=== PATIENT | male | born 1955 | race Caucasian/White ===

== ENCOUNTER → 2017-06-26 07:32 | Day surgery (SDC) | payer OTHER ==
--- NOTE | 2017-06-18 07:19 | HP ---
CC: Dr. Wang * HISTORY AND PHYSICAL: DATE OF PLANNED ADMISSION AND SURGERY: 06/26/17 HISTORY OF PRESENT ILLNESS: Mr. Guerin is a 61-year-old white male who was recently diagnosed with a 2 cm bladder tumor who is admitted for cystoscopy and excisional biopsy. Mr. Guerin was worked up by Dr Nicolas because of microscopic hematuria. He had a renal ultrasound which was normal. Cystoscopy showed a 2 cm papillary lesion in the right trigone that had the gross appearance of a well-differentiated transitional cell carcinoma. The patient then had a CT urogram which was normal, showing no abnormal filling defects in the collecting systems or in the ureters and no solid renal masses. There was some bladder wall thickening of the anterior wall, but no masses were noted. PAST MEDICAL HISTORY AND SYSTEM REVIEW: He is a nonsmoker. He has hyperlipidemia maintained on rosuvastatin and on FiberCon. He is on 1 baby aspirin per day. He denies any cardiac or pulmonary diseases or symptoms. ALLERGIES: He has no allergies to medications. PHYSICAL EXAMINATION GENERAL: He is pleasant and healthy looking white male. VITAL SIGNS: Blood pressure 120/80, pulse of 80. LUNGS: Clear. HEART: Regular and rhythmic. No murmurs. ABDOMEN: Soft. No masses. No tenderness and No CVA tenderness. RECTAL: Exam by Dr Nicolas had shown a mildly enlarged, but nonsuspicious prostate. 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 Plan is for cystoscopy and excisional biopsy of the above tumor. I discussed the plans with the patient in detail including the need for followup and possible additional treatments depending upon the pathology report. All his questions were answered. [id number]/[facility] #: [id number] [facility]
[~2017-06-26 07:32] MED LIST: Acetaminophen TAB* 325 MG PO PRN; Buffered Lidocaine 0.9% SYRIN* 5 ML/SYR SYRINGE INTRADERM ONE; Buffered Lidocaine 0.9% SYRIN* 5 ML/SYR SYRINGE ONE; Lidocaine 2% PF * 5 ML VIAL ONE; Naloxone* 0.4 MG/ML 1 ML VIAL IV PRN; Propofol* 10 MG/ML 20 ML BTL IV PUSH ONE; cefTRIAXone(*) 2 GM ADDV.VIAL IVPB ONE; fentaNYL* 50 MCG/ML 2 ML VIAL (100 MCG VIAL) IV PRN; fentaNYL* 50 MCG/ML 2 ML VIAL (100 MCG VIAL) ONE; mitoMYcin PWD* 40 MG in Sterile Water for Inj* 40 ML IRRIGATION ONE; oxyCODONE/Acetamin 5/325 MG* TAB ONE
[2017-06-26 13:39] VITALS: BP 167/100
--- NOTE | 2017-06-26 23:22 | OP ---
CC: Dr. Wang * DATE OF OPERATION: 06/26/17 - [facility] DATE OF : 53 SURGEON: Lalito German MD ANESTHESIA: General. ANESTHESIOLOGIST: Noah Barnhart MD PRE-OP DIAGNOSIS: Bladder tumor, right lateral wall. POST-OP DIAGNOSIS: Bladder tumor, right lateral wall. OPERATIVE PROCEDURE: 1. Cystoscopy. 2. Excisional biopsy and fulguration of tumor of right bladder wall (1 cm). 3. Biopsies of right trigone. INDICATIONS: Mr. Guerin is a 61-year-old white male who was worked up for asymptomatic microscopic hematuria and was noted to have a 1-cm papillary lesion in the right lateral bladder wall just proximal to the level of the bladder neck. CT urogram was normal. The patient was admitted for the above procedure. PATHOLOGY AT CYSTOSCOPY: The penile and bulbar urethrae looked normal. The prostatic urethra measured about 2.5 to 3 cm in length and there was moderate degree of obstruction by trilobar hyperplasia of the prostate. The prostatic urethra was vascular. Examination of the bladder showed moderate degree of trabeculations. The ureteral orifices looked normal. There was a 1-cm papillary lesion arising from the right lateral bladder wall, just proximal to the bladder neck. The tumor had the gross appearance of well-differentiated transitional cell carcinoma. There was irregularity of the mucosa medial to the tumor and involving the lateral right trigone and bladder neck. No other suspicious bladder lesions were seen. No calculi or diverticula were noted. DESCRIPTION OF PROCEDURE: After successful general anesthesia, the patient was placed in the lithotomy position and was prepped and draped for cystoscopy. Cystoscopy was performed. The bladder was inspected and the above findings were noted. Using the rigid biopsy forceps, the tumor was excised. Additional biopsies were obtained from the bed of the tumor to include muscle fibers. The site of the biopsies were then thoroughly fulgurated with the coagulation current. Because of the irregularity of the mucosa noted medial to the site of the excision and to rule out superficial TCC or carcinoma in situ, additional biopsies were obtained from the right trigone. One of the biopsies was close to the right orifice but did not involve it. The sites of the biopsies was then thoroughly fulgurated with the coagulation current achieving very good hemostasis. A final inspection showed no residual tumor. The right orifice was intact and clear efflux was seen coming from it. The cystoscope was then removed and 16-Ind[place]ian Parker catheter was passed inside the bladder and the balloon inflated with 10 cc of water. The plan is to give the patient 1 dose of intravesical mitomycin-C in the recovery room. [id number]/[facility] #: [id number] MTDD
== END | disposition home or self-care (01) ==
LOC: OR 07:32
PROVIDERS: ATTEND Urology
DX: N32.9 Bladder disorder, unspecified (principal); R31.29 Other microscopic hematuria; E78.5 Hyperlipidemia, unspecified
CPT/HCPCS: 88305; A9270-GY; J0696; J2704; J3010; J9280

== ENCOUNTER 2017-10-27 09:12 | Emergency (ER) | payer OTHER ==
[2017-10-27 09:28] VITALS: BP 167/105
[2017-10-27] MEDS ORDERED: Tetan/Diph/Pertus SYR(Tdap)* 0.5 ML SYR(BOOSTRIX) use SYR IM ONE (09:44)
--- NOTE | 2017-10-27 09:51 | UC ---
Epistaxis Nasal HPI - History of Current Complaint Chief Complaint: UCLaceration Stated Complaint: CUT ON NOSE Time Seen by Provider: 10/27/17 09:34 Hx Obtained From: Patient Onset/Duration: Sudden Onset, Lasting Hours Timing: Constant Severity Initially: Mild Severity Currently: None Pain Intensity: 0 Aggravating Factor(s): Nasal Trauma Alleviating Factor(s): Nothing Associated Signs And Symptoms: Positive: Bruising - Allergies/Home Medications Allergies/Adverse Reactions: Allergies Allergy/AdvReac Type Severity Reaction Status Date / Time No Known Allergies Allergy Verified 10/27/17 09:19 PMH/Surg Hx/FS Hx/Imm Hx Previously Healthy: Yes Cardiovascular History: Hypertension - Surgical History Surgical History: Yes Surgery Procedure, Year, and Place: RIGHT WRIST PINNING FOR FRACTURE-3 YRS AGO- [facility]. VASECTOMY-26 YEARS AGO - Family History Known Family History: Positive: Hypertension - Social History Alcohol Use: Daily Alcohol Amount: 5 BEERS PER DAY Substance Use Type: None Smoking Status (MU): Never Smoked Tobacco Review of Systems Constitutional: Negative All Other Systems Reviewed And Are Negative: Yes Physical Exam Triage Information Reviewed: Yes Appearance: Well-Appearing, No Pain Distress, Well-Nourished Vital Signs: Initial Vital Signs Temp 98.1 F 10/27/17 09:16 Pulse 83 10/27/17 09:16 Resp 18 10/27/17 09:16 BP 167/105 10/27/17 09:16 Pulse Ox 98 10/27/17 09:16 Vital Signs Reviewed: Yes Eyes: Positive: Conjunctiva Inflamed ENT: Positive: Hearing grossly normal, Pharynx normal, TMs normal, Other - no edema surrounding nasal bridge, small hematoma and abrasion 0.5x0.3cm on bridge of nose. No deformity, non tender on nose of zygomatic area no PNST, no blood or discharge from narines, turbinates are normal. Dental Exam: Normal Neck: Positive: Supple, Nontender, No Lymphadenopathy Respiratory: Positive: Chest non-tender, Lungs clear, Normal breath sounds, No respiratory distress Cardiovascular: Positive: RRR, No Murmur, Pulses Normal, Brisk Capillary Refill Epistaxis Nasal Course/Dx - Course Course Of Treatment: Tdap vaccine administered at . Abrasion to be dressed with bacitracin ointment, wound care instructions given to patient - Differential Dx/Diagnosis Provider Diagnoses: Abrasion on bridge of nose. HTN Discharge - Sign-Out/Discharge Documenting (check all that apply): Discharge/Admit/Transfer - Discharge Plan Condition: Good Disposition: HOME Patient Education Materials: Abrasion (ED), Tdap and Td Vaccines for Adults (ED ), Chronic Hypertension (ED) Referrals: Wally Wang MD [Primary Care Provider] - - Billing Disposition and Condition Condition: GOOD Disposition: Home
== END 2017-10-27 09:56 | disposition home or self-care (01) ==
LOC: UCEAST 09:12
DX: S00.31XA Abrasion of nose, initial encounter (principal); X58.XXXA Exposure to other specified factors, initial encounter; Y93.9 Activity, unspecified; Y99.9 Unspecified external cause status; I10 Essential (primary) hypertension
CPT/HCPCS: 90471; 90715; 99212; G0463

== ENCOUNTER 2020-02-16 10:27 | Inpatient (IN) ==
[2020-02-16] MEDS ORDERED: Heparin - STEMI 5,000 UNITS/ML 1 ml VIAL IV ONE (10:40)
[2020-02-16] MEDS ORDERED: Metoprolol Tartrate 5 mg VIAL 5 ml VIAL (1 mg/ml) IV ONE (10:48)
[2020-02-16] MEDS ORDERED: Metoprolol Tartrate 5 mg VIAL 5 ml VIAL (1 mg/ml) ONE (10:51)
[2020-02-16] MEDS ORDERED: NS 0.9% 1000 ml BAG 1,000 ML IV SCH (11:00)
[2020-02-16] MEDS ORDERED: Heparin 2 UNITS/ML 1000 mls 2,000 ML IV ONE (11:04)
[2020-02-16] MEDS ORDERED: Iohexol 350 (CONTRAST) 200 ML MDV IV ONE ×2 (11:04→11:59)
[2020-02-16] MEDS ORDERED: Lidocaine 1% VIAL 10 MG/ML VIAL ONE (11:04)
[2020-02-16] MEDS ORDERED: Naloxone 0.4 mg VIAL 0.4 mg/ml 1 ml VIAL ONE (11:07)
[2020-02-16] MEDS ORDERED: Midazolam 5 mg/5 ml VIAL 1 mg/ml 5 ml VIAL (5 mg) ONE (11:07)
[2020-02-16] MEDS ORDERED: fentaNYL 100 mcg/2 ml 50 MCG/ML VIAL ONE (11:07)
[2020-02-16 11:08] LABS: ABS Lymphocytes 2.2 10^3/ul (1.0-4.8); ABS Monocytes 0.7 10^3/ul (0-0.8); ABS Neutrophils 6.7 10^3/ul (1.5-7.7); Eosinophil % 0.4 %; Hematocrit 46 % (42-52); Hemoglobin 15.5 g/dL (14.0-18.0); Lymphocyte % 22.7 %; Mean Corpuscular HGB Conc 34 g/dL (31-36); Mean Corpuscular Hemoglobin 32 pg (27-31); Mean Corpuscular Volume 93 fL (80-94); Mean Platelet Volume 7.9 fL (7.4-10.4); Platelet Count 275 10^3/uL (150-450); Red Blood Count 4.89 10^6 /uL (4.18-5.48); Red Cell Distribution Width 13 % (10-15); White Blood Count 9.7 10^3/uL (3.5-10.8)
[2020-02-16] MEDS ORDERED: Flumazenil 0.5 mg/5 ml 0.1 MG/ML 5 ml VIAL ONE (11:08)
[2020-02-16] MEDS ORDERED: Heparin 1,000 UNIT/ML 10 ml (10,000 UNITS) CATHLAB/DIALYSIS ONE (11:09)
[2020-02-16] MEDS ORDERED: nitroGLYCERIN DRIP 25,000 MCG/250 ML BTL ONE (11:09)
[2020-02-16] MEDS ORDERED: VERAPAMIL 2.5 MG/ML 2 ML VIAL ** 5 mg/2 ml ONE (11:09)
[2020-02-16 11:16] LABS: Activated Partial Thrombo Time 37.4 seconds (26.0-38.0); INR 0.98 (0.82-1.09)
[2020-02-16 11:19] LABS: ALT 22 U/L (7-52); AST 31 U/L (13-39); Albumin 4.4 g/dL (3.2-5.2); Albumin/Globulin Ratio 1.5 (1-3); Alkaline Phosphatase 54 U/L (34-104); Anion Gap 8 mmol/L (2-11); BUN/Creatinine Ratio 11.8 (8-20); Blood Urea Nitrogen 13 mg/dL (6-24); CO2 Carbon Dioxide 27 mmol/L (22-32); Calcium 9.1 mg/dL (8.6-10.3); Chloride 101 mmol/L (101-111); EGFR African American 81.3 (>60); EGFR Non-African American 67.2 (>60); Glucose 115 mg/dL (70-100); Potassium 3.9 mmol/L (3.5-5.0); Sodium 136 mmol/L (135-145); Total Protein 7.4 g/dL (6.4-8.9)
[2020-02-16] MEDS ORDERED: Atropine 0.1 MG/ML 10 ml SYR (1 mg) ONE (11:37)
[2020-02-16 12:35] LABS: CKMB ng/mL 36.3 ng/mL (0.6-6.3); Creatine Kinase 139 U/L (10-223); LDL Cholesterol Direct 102 mg/dL
[2020-02-16 14:52] LABS: Troponin I 2.29 ng/mL (<0.03)
[2020-02-16] MEDS: Multivitamins/Minerals TAB PO SCH (18:36)
[2020-02-16 20:31] LABS: CKMB ng/mL 92.6 ng/mL (0.6-6.3)
[2020-02-16 20:34] LABS: Troponin I 11.65 ng/mL (<0.03)
[2020-02-16 20:48] LABS: Creatine Kinase 390 U/L (10-223)
[2020-02-17 04:27] LABS: Creatine Kinase 342 U/L (10-223)
[2020-02-17 04:32] LABS: CKMB ng/mL 66.7 ng/mL (0.6-6.3)
[2020-02-17 04:41] LABS: Troponin I 10.85 ng/mL (<0.03)
[2020-02-17 06:31] LABS: ABS Lymphocytes 1.5 10^3/ul (1.0-4.8); ABS Monocytes 0.7 10^3/ul (0-0.8); ABS Neutrophils 6.6 10^3/ul (1.5-7.7); Eosinophil % 0.2 %; Hematocrit 36 % (42-52); Hemoglobin 12.3 g/dL (14.0-18.0); Lymphocyte % 16.5 %; Mean Corpuscular HGB Conc 35 g/dL (31-36); Mean Corpuscular Hemoglobin 33 pg (27-31); Mean Corpuscular Volume 95 fL (80-94); Platelet Count 199 10^3/uL (150-450); Red Blood Count 3.76 10^6 /uL (4.18-5.48); Red Cell Distribution Width 13 % (10-15); White Blood Count 8.8 10^3/uL (3.5-10.8)
[2020-02-17 07:01] LABS: Albumin 3.1 g/dL (3.2-5.2); Albumin/Globulin Ratio 1.6 (1-3); BUN/Creatinine Ratio 13.6 (8-20); Calcium 7.5 mg/dL (8.6-10.3); EGFR African American 105.2 (>60); EGFR Non-African American 86.9 (>60); HDL Cholesterol 31.1 mg/dL; Magnesium 1.8 mg/dL (1.9-2.7); Potassium 3.6 mmol/L (3.5-5.0); Total Bilirubin 0.6 mg/dL (0.2-1.0); Total Protein 5.1 g/dL (6.4-8.9)
[2020-02-17] MEDS ORDERED: Potassium Chlor 20 meq TAB.ER PO ONE (08:25)
[2020-02-17] MEDS ORDERED: Magnesium Sulfate 2 gm BAG 2 GM/50 ML BAG IVPB ONE (08:25)
[2020-02-17] MEDS ORDERED: Magnesium Sulfate 2 gm BAG 2 GM/50 ML BAG ONE (08:30)
[2020-02-17] MEDS: Multivitamins/Minerals TAB PO SCH (08:34)
[2020-02-18] MEDS: Multivitamins/Minerals TAB PO SCH (09:17)
[2020-02-18 10:33] VITALS: BP 127/82
== END 2020-02-18 11:45 | disposition home or self-care (01) | DRG 247 ==
LOC: ED 10:27 → CHICATH 10:49 → ICU 12:51 → MEDTELE 02-17 12:59
PROVIDERS: ADMIT Internal Medicine Cardiovascular Disease; ATTEND Internal Medicine Cardiovascular Disease